=== PATIENT | male | born 1960 | race Caucasian/White ===

== ENCOUNTER 2019-02-26 10:26 | Day surgery (SDC) | payer OTHER ==
[2019-02-26] MEDS ORDERED: DIPRIVAN 200 MG/20 ML IV ONE (10:27)
[2019-02-26] MEDS ORDERED: Marcaine 0.5% SDV 10 ML IJ ONE (10:27)
[2019-02-26] MEDS ORDERED: XYLOCAINE 1% HCL 20 ML MDV IJ ONE (10:27)
[2019-02-26] MEDS ORDERED: Ketamine HCl 50 MG/ML IV ONE (10:27)
[2019-02-26] MEDS ORDERED: Depo-Medrol 40 MG/ML IM ONE (10:27)
[2019-02-26] MEDS ORDERED: Xylocaine 1% Vial 30 ML PF IJ ONE (10:27)
--- NOTE | 2019-02-26 12:24 | XRAY ---
5 seconds fluoroscopy time in surgery for right knee injection.
--- NOTE | 2019-02-26 12:24 | XRAY ---
7 seconds fluoroscopy time in surgery for left knee injection.
--- NOTE | 2019-02-26 12:25 | XRAY ---
Indication: Right knee injection. Intraoperative fluoroscopy was provided for 5 seconds. Single digital spot image submitted for interpretation demonstrates needle tip projecting over the right femur intercondylar notch. Small amount of contrast injected for needle tip placement. Correlate with intraoperative findings/report.
--- NOTE | 2019-02-26 12:34 | XRAY ---
Indication: Left knee injection. Intraoperative fluoroscopy was provided for 7 seconds. Single digital spot image submitted for interpretation demonstrates needle tip projecting over the left femur intercondylar notch. Small amount of contrast injected for needle tip placement. Correlate with intraoperative findings/report.
[2019-02-26] MEDS ORDERED: Lactated Ringers 1,000 ML IV ONE (13:48)
== END 2019-02-26 11:50 | disposition home or self-care (01) ==
LOC: SDC-PAIN 10:26
PROVIDERS: ATTEND Psychiatry & Neurology Pain Medicine
DX: M17.0 Bilateral primary osteoarthritis of knee (principal); I10 Essential (primary) hypertension; J44.9 Chronic obstructive pulmonary disease, unspecified; G62.9 Polyneuropathy, unspecified; B35.1 Tinea unguium; D64.9 Anemia, unspecified; F41.9 Anxiety disorder, unspecified; I25.10 Atherosclerotic heart disease of native coronary artery without angina pectoris; Z79.899 Other long term (current) drug therapy
CPT/HCPCS: 20610; 73560; 77002; J1030; J2001; J2704; Q9966

== ENCOUNTER 2019-03-14 05:51 | Day surgery (SDC) | payer OTHER ==
[2019-03-14] MEDS ORDERED: DIPRIVAN 200 MG/20 ML IV ONE (05:52)
[2019-03-14] MEDS ORDERED: Lactated Ringers 1,000 ML IV SCH (06:00)
[2019-03-14] MEDS ORDERED: Lactated Ringers 1,000 ML IV ONE (08:29)
[2019-03-14 08:59] VITALS: O2SAT 97
[2019-03-14 10:00] VITALS: BP 116/72; PULSE 72
--- NOTE | 2019-03-14 10:29 | OP ---
SURGERY DATE/TIME: 03/14/2019 0758 PREOPERATIVE DIAGNOSIS: Screening exam. POSTOPERATIVE DIAGNOSIS: Normal colon. PROCEDURE: Colonoscopy. SURGEON: Dr. Howell. ANESTHESIA: MAC. Medications given by anesthesia department. HISTORY: The patient is a 58 year-old white male patient presenting now for colonoscopic evaluation. He was appraised of the risks of the procedure including the risk of perforation, phlebitis, untoward reaction to medication, bleeding and missed lesions. The patient verbalized his understanding and desired to have the procedure performed. DESCRIPTION OF PROCEDURE: The patient was given the medications by the anesthesia department. He had continuous pulse oximetry, ECG monitoring, intermittent blood pressure monitoring and tidal CO2 monitoring during the examination. He was placed in the left lateral decubitus position. A digital rectal examination was performed and revealed normal anal sphincter tone, no masses and normal prostate. The flexible Olympus pediatric colonoscope was used to intubate the rectum. A view of the colon was developed sequentially to the cecum. Upon insertion and withdrawal, including a retroflex view in the rectum, no mucosal lesions were encountered. The scope was removed from the patient who tolerated the procedure well and was sent back to OP recovery in good condition. The prep was noted to be good. The colon was noted to be quite tortuous.
== END 2019-03-14 09:30 | disposition home or self-care (01) ==
LOC: SDC 05:51
PROVIDERS: ATTEND Family Medicine
DX: Z12.11 Encounter for screening for malignant neoplasm of colon (principal)
CPT/HCPCS: J2704

== ENCOUNTER 2019-08-13 11:25 | Emergency (ER) | payer OTHER ==
[2019-08-13] MEDS ORDERED: MORPHINE SULFATE 4 MG INJ IV ONE (11:28)
--- NOTE | 2019-08-13 11:38 | ERPHSYRPT ---
- History of Present Illness Time Seen by Provider: 08/13/19 11:25 Historian: patient Exam Limitations: no limitations Physician History: Patient referred to the emergency department from the pain clinic due to having worsening neck pain radiating to the left arm with pain in the posterior thoracic spine/left scapula area. Symptoms of the neck and arm have been going on for two weeks, worsening over the past two days. Timing/Duration: week(s) (2), worse (over the past two days) Activities at Onset: none Quality: aching Location: back, other (left arm and neck) Chest Pain Radiation: arm Severity of Pain-Max: moderate Severity of Pain-Current: mild Modifying Factors: Improves With: nothing Associated Symptoms: back pain (thoracic area), No nausea, No vomiting, No palpitations, No heartburn, No abdominal pain, No shortness of breath, No cough , No hurts to breathe, No diaphoresis, No chills, No fever, No fatigue, No weakness, No swelling/lump in chest, No syncope, No rash, No headache, No dizziness, No edema Prior Chest Pain/Cardiac Workup: stress test Nitro Today/Relief: no nitro taken today Aspirin Treatment Today: 325 mg x 1 Allergies/Adverse Reactions: No Known Drug Allergies Allergy (Verified 08/13/19 11:51) Home Medications: Acetaminophen [Tylenol Extra Strength] 2 tab PO Q6H PRN 03/07/19 [History] Atorvastatin Calcium 80 mg PO QHS 03/07/19 [History] Carbidopa/Levodopa [Rytary ER 36.25 mg-145 mg Cap] 1 each PO TID 03/07/19 [ History] Cetirizine HCl [Zyrtec] 10 mg PO DAILY 03/07/19 [History] Clopidogrel Bisulfate 75 mg [PLAVIX 75 MG Tablet] 1 tab PO DAILY 03/07/19 [History] Duloxetine HCl [Cymbalta] 60 mg PO BID 03/07/19 [History] Famotidine 20 mg [Pepcid 20 MG] 20 mg PO DAILY 03/07/19 [History] Folic Acid 1 mg [Folate 1 mg] 1 mg PO BID 03/07/19 [History] Hydroxyzine HCl 25 mg [Atarax 25 mg] 1 tab PO TID 03/07/19 [History] Methotrexate Sodium [Methotrexate] 8 tab PO WEEKLY 03/07/19 [History] Metoprolol Succinate 25 mg Xl* [Toprol-Xl 25MG Tablets] 12.5 mg PO BID [History] Pregabalin [Lyrica 100Mg] 100 mg PO TID 03/07/19 [History] Tramadol HCl 50 mg [Ultram 50 mg] 2 tab PO Q6H PRN 03/07/19 [History] Cyclobenzaprine HCl 5 mg PO BID PRN 08/13/19 [History] Leflunomide 10 mg PO DAILY 08/13/19 [History] Quetiapine Fumarate [Seroquel] 50 mg PO DAILY 08/13/19 [History] buPROPion HCl [Wellbutrin Sr] 100 mg PO DAILY 08/13/19 [History] - Review of Systems Constitutional: No Fever, No Chills, No Fatigue Eyes: No Eye Pain, No Vision Changes Ears, Nose, & Throat: No Mouth Pain, No Throat Swelling, No Hoarse, No Painful Swallowing Respiratory: No Cough, No Dyspnea Cardiac: No Chest Pain, No Edema, No Palpitations, No Syncope Abdominal/Gastrointestinal: No Abdominal Pain, No Nausea, No Vomiting Genitourinary Symptoms: No Dysuria, No Hematuria, No Flank Pain, No Other Musculoskeletal: Neck Pain, No Arthralgias, No Back Pain, No Joint Redness, No Joint Pain Skin: No Pruritis, No Rash Neurological: No Focal Weakness, No Paralysis, No Parasthesia, No Tremors Psychological: No Anxiety Hematologic/Lymphatic: No Easy Bleeding, No Easy Bruising All Other Systems: Reviewed and Negative - Past Medical History Pertinent Past Medical History: Yes Neurological History: No Pertinent History ENT History: No Pertinent History Cardiac History: Coronary Artery Disease, High Cholesterol, Hypertension, Other Respiratory History: COPD Endocrine Medical History: No Pertinent History Musculoskeletal History: Other GI Medical History: GERD History: No Pertinent History Psycho-Social History: Anxiety, Depression Male Reproductive Disorders: No Pertinent History Other Medical History: Hx of PAD and PVD. Femoral stents in both legs.Hx of smoking. Quit in 2104. Steroid injections in both knees 2-3 weeks ago. Hx of Parkinsons. Pt states " since surgery I catch things easily." - Past Surgical History Past Surgical History: Yes Neuro Surgical History: No Pertinent History Cardiac: CABG, Vascular Surgery, Other Respiratory: No Pertinent History Gastrointestinal: No Pertinent History Genitourinary: No Pertinent History Musculoskeletal: No Pertinent History Male Surgical History: No Pertinent History Other Surgical History: Hernia surgery 2015, CABG x 4 vessels in 2015, femoral stents in both legs. - Social History Smoking Status: Former smoker Exposure to second hand smoke: No Drug Use: none - Nursing Vital Signs Nursing Vital Signs: Initial Vital Signs Temperature 97.6 F 08/13/19 11:26 Pulse Rate 77 08/13/19 11:26 Respiratory Rate 14 08/13/19 11:26 Blood Pressure 126/77 08/13/19 11:26 O2 Sat by Pulse Oximetry 100 08/13/19 11:26 Pain Scale Pain Intensity 8 - Physical Exam General Appearance: no apparent distress Eye Exam: PERRL/EOMI, eyes nml inspection, No scleral icterus Ears, Nose, Throat Exam: pharynx normal, moist mucous membranes Neck Exam: normal inspection, non-tender, supple, full range of motion, No meningismus, No Brudzinski, No lymphadenopathy, No midline tenderness Respiratory Exam: normal breath sounds, lungs clear, airway intact, No chest tenderness, No respiratory distress, No accessory muscle use, No prolonged expirations, No crackles/rales, No rhonchi, No wheezing, No stridor, No pleural rub Cardiovascular Exam: regular rate/rhythm, normal heart sounds, normal peripheral pulses, capillary refill <2 sec Gastrointestinal/Abdomen Exam: soft, normal bowel sounds, No tenderness, No distention, No mass, No guarding, No ecchymosis, No pulsatile mass, No rebound, No hepatomegaly Back Exam: normal inspection, normal range of motion, No CVA tenderness, No vertebral tenderness, No rash Neurologic Exam: alert, oriented x 3, cooperative, radiology administrator II-XII nml as tested, normal mood/affect, nml station & gait, sensation nml, No motor deficits, No motor weakness Skin Exam: normal color, warm, dry, No rash, No petechiae, No cyanosis SpO2 Interpretation: normal O2 Delivery: Room Air - Course Nursing assessment & vital signs reviewed: Yes EKG Interpreted by Me: RATE (80), Sinus Rhythm, NORMAL AXIS, NORMAL INTERVALS, Right Bundle Branch Block, NORMAL ST-T, Other (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; negative previous EKG for comparison) - Radiology Exams Chest X-ray Interpretation: Interpreted by me, Reviewed by me, Negative, No Fracture, No Pneumonia, No Pneumothorax, Nml Heart Size, No Infiltrates, Nml Mediastinum, Other (hyperinflation and patient has sternotomy wires/CABG surgery; mild degenerative changes in the bony thorax; confirmed by Radiologist) C-Spine X-ray Interpretation: Reviewed by me, Other (per radiologist interpretation: 3 views of the cervical spine demonstrates 2 mm C4 retrolisthesis on C5, moderate C6 and C7 degenerative disc space loss with endplate spurring, mild/moderate degenerative facet hypertrophy left greater than right, left carotid calcification, and sternotomy wires. No other bony, articular or soft tissue abnormalities. Overall impression: Nonacute cervical spine with chronic features.) Ordered Tests: Active Orders 24 hr Category Date Time Status Skull Grinder STAT Care 08/13/19 11:28 Active EKG-ER Only STAT Care 08/13/19 11:28 Active IV Insertion STAT Care 08/13/19 11:28 Active Pulse Oximetry (ED) STAT Care 08/13/19 11:28 Active CERVICAL SPINE (2 OR 3 VIEW) Stat Exams 08/13/19 12:14 Completed CHEST 1 VIEW (PORTABLE) Stat Exams 08/13/19 11:42 Completed CBC W DIFF Stat Lab 08/13/19 11:38 Completed CK-Creatinine Phosphokinase Stat Lab 08/13/19 11:38 Completed CMP Stat Lab 08/13/19 11:38 Completed MAGNESIUM Stat Lab 08/13/19 11:38 Completed NT PRO BNP Stat Lab 08/13/19 11:38 Completed PROTIME WITH INR Stat Lab 08/13/19 11:38 Completed PTT Stat Lab 08/13/19 11:38 Completed TROPONIN Q3H Lab 08/13/19 11:38 Completed TROPONIN Q3H Lab 08/13/19 14:30 Completed TROPONIN Q3H Lab 08/13/19 17:30 Ordered TROPONIN Q3H Lab 08/13/19 20:30 Ordered TROPONIN Q3H Lab 08/13/19 23:30 Ordered Urine Triage Profile Stat Lab 08/13/19 11:57 Completed Medication Summary Discontinued Medications Generic Name Dose Route Start Last Admin Trade Name Freq PRN Reason Stop Dose Admin Morphine Sulfate 4 mg 08/13/19 11:28 08/13/19 11:51 Morphine Sulfate 4 Mg Inj IV 08/13/19 11:29 4 mg STAT ONE Administration Morphine Sulfate Confirm 08/13/19 11:50 Morphine Sulfate 4 Mg Inj Administered 08/13/19 11:51 Dose 4 mg .ROUTE .STK-MED ONE Lab/Rad Data: Laboratory Result Diagrams 08/13/19 11:38 08/13/19 11:38 Laboratory Results 08/13/19 08/13/19 08/13/19 Range/Units 14:30 11:57 11:38 WBC (4.0-10.5) K/mm3 RBC (4.1-5.6) M/mm3 Hgb (12.5-18.0) gm/dl Hct (42-50) % MCV (78-100) fl MCH (26-32) pg MCHC (32-36) g/dl RDW (11.5-14.0) % Plt Count (150-450) K/mm3 MPV (6-9.5) fl Gran % (36.0-66.0) % Eos # (Auto) (0-0.5) Absolute Lymphs (auto) (1.0-4.6) Absolute Monos (auto) (0.0-1.3) Lymphocytes % (24.0-44.0) % Monocytes % (0.0-12.0) % Eosinophils % (0.00-5.0) % Basophils % (0.0-0.4) % Absolute Granulocytes (1.4-6.9) Basophils # (0-0.4) PT (8.83-12.87) SECONDS INR (0.8-3.0) APTT (24.1-36.1) SECONDS Sodium (137-145) mmol/L Potassium (3.5-5.1) mmol/L Chloride (98-107) mmol/L Carbon Dioxide (22-30) mmol/L Anion Gap (5-15) MEQ/L BUN (9-20) mg/dL Creatinine (0.66-1.25) mg/dL Estimated GFR ML/MIN Glucose (74-106) mg/dL Calcium (8.4-10.2) mg/dL Magnesium (1.6-2.3) mg/dL Total Bilirubin (0.2-1.3) mg/dL AST (17-59) U/L ALT (0-50) U/L Alkaline Phosphatase (38-126) U/L Creatine Kinase (55-170) U/L Troponin I < 0.012 < 0.012 (0.000-0.034) ng/mL NT-Pro-B Natriuret Pep (0-900) pg/mL Serum Total Protein (6.3-8.2) g/dL Albumin (3.5-5.0) g/dL Urine Opiates Level NEGATIVE (NEGATIVE) Ur Methadone NEGATIVE (NEGATIVE) Urine Barbiturates NEGATIVE (NEGATIVE) Ur Phencyclidine (PCP) NEGATIVE (NEGATIVE) Urine Amphetamine NEGATIVE (NEGATIVE) U Benzodiazepine Level NEGATIVE (NEGATIVE) Urine Cocaine NEGATIVE (NEGATIVE) Urine Marijuana (THC) NEGATIVE (NEGATIVE) 08/13/19 08/13/19 08/13/19 Range/Units 11:38 11:38 11:38 WBC 7.7 (4.0-10.5) K/mm3 RBC 3.85 L (4.1-5.6) M/mm3 Hgb 12.3 L (12.5-18.0) gm/dl Hct 38.8 L (42-50) % MCV 100.8 H (78-100) fl MCH 31.9 (26-32) pg MCHC 31.7 L (32-36) g/dl RDW 14.5 H (11.5-14.0) % Plt Count 220 (150-450) K/mm3 MPV 9.4 (6-9.5) fl Gran % 57.2 (36.0-66.0) % Eos # (Auto) 0.89 H (0-0.5) Absolute Lymphs (auto) 1.44 (1.0-4.6) Absolute Monos (auto) 0.93 (0.0-1.3) Lymphocytes % 18.7 L (24.0-44.0) % Monocytes % 12.1 H (0.0-12.0) % Eosinophils % 11.5 H (0.00-5.0) % Basophils % 0.5 (0.0-0.4) % Absolute Granulocytes 4.41 (1.4-6.9) Basophils # 0.04 (0-0.4) PT 11.5 (8.83-12.87) SECONDS INR 1.02 (0.8-3.0) APTT 31.7 (24.1-36.1) SECONDS Sodium 143 (137-145) mmol/L Potassium 4.4 (3.5-5.1) mmol/L Chloride 105 (98-107) mmol/L Carbon Dioxide 29 (22-30) mmol/L Anion Gap 13.7 (5-15) MEQ/L BUN 15 (9-20) mg/dL Creatinine 0.84 (0.66-1.25) mg/dL Estimated GFR > 60.0 ML/MIN Glucose 83 (74-106) mg/dL Calcium 9.4 (8.4-10.2) mg/dL Magnesium 2.2 (1.6-2.3) mg/dL Total Bilirubin 0.40 (0.2-1.3) mg/dL AST 17 (17-59) U/L ALT < 4 (0-50) U/L Alkaline Phosphatase 59 (38-126) U/L Creatine Kinase 61 (55-170) U/L Troponin I (0.000-0.034) ng/mL NT-Pro-B Natriuret Pep 123 (0-900) pg/mL Serum Total Protein 8.1 (6.3-8.2) g/dL Albumin 4.2 (3.5-5.0) g/dL Urine Opiates Level (NEGATIVE) Ur Methadone (NEGATIVE) Urine Barbiturates (NEGATIVE) Ur Phencyclidine (PCP) (NEGATIVE) Urine Amphetamine (NEGATIVE) U Benzodiazepine Level (NEGATIVE) Urine Cocaine (NEGATIVE) Urine Marijuana (THC) (NEGATIVE) - Progress Progress: re-examined Air Movement: good Progress Note: 08/13/19 11:51 Cardiac Nuclear Study performed on 12/30/2018: No evidence of pharmacologic reversible ischemia; Normal EF: 58% 08/13/19 12:36 HEART score: 3, low risk, up to 1.7 % risk for MACE in next 6 weeks Patient is chest pain free currently with no complaints of nausea, abdominal pain or dyspnea. Patient has been in sinus rhythm throughout his time in the emergency department with no ectopy or arrythmias on the front desk monitor. Patient would like to get a second troponin due to his past coronary history. 08/13/19 16:25 Patient doing well with no chest pain, dyspnea or back pain. Repeat troponin was negative, keeping his HEART score at 3, low risk and can be followed up as an outpatient. Blood Culture(s) Obtained: No Antibiotics given: No Counseled pt/family regarding: lab results, diagnosis, need for follow-up, rad results - Departure Departure Disposition: Home Clinical Impression: Neck pain on left side, Cervical radiculopathy at C6, Degenerative disc disease , cervical, Facet arthropathy, cervical, Macrocytic anemia Condition: Good Critical Care Time: No Referrals: MUSTAPHA RIOS [Primary Care Provider] - 08/14/19 Instructions: Spinal Stenosis, Vitamin B12 Deficiency and Folic Acid Deficiency , Chest Pain (DC), Radiculopathy (DC), Chronic Neck Pain (DC) Additional Instructions: Return immediately back to the Emergency Department if any worsening pain, new chest pain, new shortness of breath, new weakness in the arms, new loss of sensation, new abdominal pain, new nausea, new skin rash, or any other concerning signs or symptoms that were not present at today's emergency department visit for immediate reevaluation in the emergency department. Prescriptions: Methylprednisolone Packet [Medrol Dosepack] 4 mg PO UD #1 packet
[2019-08-13 11:41] LABS: Absolute Neutrophil Ct (ANC) 4.41 (1.4-6.9); BASOPHIL % 0.5 % (0.0-0.4); Basophil (Absolute #) 0.04 (0-0.4); Eosinophil % 11.5 % (0.00-5.0); Eosinophil (Absolute #) 0.89 (0-0.5); Hematocrit 38.8 % (42-50); Hemoglobin 12.3 gm/dl (12.5-18.0); Lymphocyte (Absolute #) 1.44 (1.0-4.6); Lymphocytes % 18.7 % (24.0-44.0); Mean Cell Volume 100.8 fl (78-100); Mean Corpuscular Hemoglobin 31.9 pg (26-32); Mean Corpuscular Hgb Concent. 31.7 g/dl (32-36); Mean Platelet Volume 9.4 fl (6-9.5); Monocyte (Absolute #) 0.93 (0.0-1.3); Monocytes % 12.1 % (0.0-12.0); Neutrophil % 57.2 % (36.0-66.0); Platelet Count 220 K/mm3 (150-450); Red Blood Count 3.85 M/mm3 (4.1-5.6); Red Cell Distribution Width 14.5 % (11.5-14.0); White Blood Count 7.7 K/mm3 (4.0-10.5)
[2019-08-13] MEDS ORDERED: MORPHINE SULFATE 4 MG INJ ONE (11:50)
[2019-08-13 11:51] LABS: INR 1.02 (0.8-3.0); PROTIME 11.5 SECONDS (8.83-12.87)
[2019-08-13 11:54] LABS: PTT 31.7 SECONDS (24.1-36.1)
[2019-08-13 12:04] LABS: ALBUMIN 4.2 g/dL (3.5-5.0); ALKALINE PHOSPHATASE 59 U/L (38-126); ANION GAP 13.7 MEQ/L (5-15); BLOOD UREA NITROGEN 15 mg/dL (9-20); CHLORIDE 105 mmol/L (98-107); CK-Creatinine Phosphokinase 61 U/L (55-170); Calcium 9.4 mg/dL (8.4-10.2); Carbon Dioxide 29 mmol/L (22-30); Creatinine 1 0.84 mg/dL (0.66-1.25); Glucose 83 mg/dL (74-106); MAGNESIUM 2.2 mg/dL (1.6-2.3); NT PRO BNP 123 pg/mL (0-900); Potassium 4.4 mmol/L (3.5-5.1); SGOT/AST 17 U/L (17-59); SODIUM 143 mmol/L (137-145); Total Protein 8.1 g/dL (6.3-8.2)
[2019-08-13 12:09] LABS: SGPT/ALT < 4 U/L (0-50)
[2019-08-13 12:20] LABS: Amphetamine,Urine NEGATIVE (NEGATIVE); Barbiturate,Urine NEGATIVE (NEGATIVE); Benzodiazepine,Urine NEGATIVE (NEGATIVE); Cocaine,Urine NEGATIVE (NEGATIVE); Methadone,Urine NEGATIVE (NEGATIVE); Opiate,Urine NEGATIVE (NEGATIVE); PCP,Urine NEGATIVE (NEGATIVE); THC,Urine NEGATIVE (NEGATIVE)
--- NOTE | 2019-08-13 13:15 | XRAY ---
Indication: Left arm pain. Comparison: May 20, 2019. Portable chest remains hyperinflated and clear. Heart is not enlarged again with CABG surgery. Bony thorax intact again with mild degenerative changes. Impression: Stable nonacute chest with chronic features.
--- NOTE | 2019-08-13 13:16 | XRAY ---
Indication: Left arm pain. Comparison: None 3 views of the cervical spine demonstrates 2 mm C4 anterolisthesis on C5, moderate C6-C7 degenerative disc space loss with endplate spurring, mild/moderate degenerative facet hypertrophy left greater than right, left carotid calcifications, and sternotomy wires. No other bony, articular, or soft tissue abnormalities. Impression: Nonacute cervical spine with chronic features.
[2019-08-13 16:29] VITALS: BP 96/66; PULSE 64; O2SAT 99
== END 2019-08-13 16:38 | disposition home or self-care (01) ==
LOC: ED 11:25
DX: M54.2 Cervicalgia (principal); M54.12 Radiculopathy, cervical region; M50.30 Other cervical disc degeneration, unspecified cervical region; M12.9 Arthropathy, unspecified
CPT/HCPCS: 36000; 36415; 71045; 72040; 80053; 80307; 82550; 83735; 83880; 84484; 85025; 85610; 85730; 93005; 93041; 94760; 96374; 99284; J2270

== ENCOUNTER 2021-03-18 16:33 | Emergency (ER) | payer OTHER ==
[2021-03-18 17:34] LABS: Hematocrit 33.7 % (42-50); Mean Cell Volume 98.3 fl (78-100); Mean Corpuscular Hemoglobin 29.2 pg (26-32); Mean Corpuscular Hgb Concent. 29.7 g/dl (32-36); Mean Platelet Volume 9.7 fl (7.5-11.0); Platelet Count 175 K/mm3 (150-450); Red Blood Count 3.43 M/mm3 (4.1-5.6); Red Cell Distribution Width 17.7 % (11.5-14.0); White Blood Count 6.8 K/mm3 (4.0-10.5)
[2021-03-18 17:44] LABS: ALBUMIN 3.7 g/dL (3.5-5.0); ALKALINE PHOSPHATASE 53 U/L (38-126); ANION GAP 9.5 MEQ/L (5-15); BLOOD UREA NITROGEN 20 mg/dL (9-20); CHLORIDE 105 mmol/L (98-107); Calcium 8.4 mg/dL (8.4-10.2); Carbon Dioxide 29 mmol/L (22-30); Creatinine 1 0.96 mg/dL (0.66-1.25); EST GLOMERULAR FILTRATION RATE > 60.0 ML/MIN; Glucose 90 mg/dL (74-106); SGOT/AST 19 U/L (17-59); SODIUM 140 mmol/L (137-145); Total Protein 6.5 g/dL (6.3-8.2)
[2021-03-18 17:46] LABS: Appearance CLEAR (CLEAR); Bilirubin NEGATIVE (NEGATIVE); Blood NEGATIVE Ery/ul (0-5); Glucose NEGATIVE (NEGATIVE); Hyaline Casts 0-2 /LPF (0-2); Ketones TRACE (NEGATIVE); Leukocyte Esterase NEGATIVE (NEGATIVE); Nitrite NEGATIVE (NEGATIVE); Protein,Urine Dip NEGATIVE (Negative); Specific Gravity 1.024 (1.005-1.025); Urobilinogen NEGATIVE mg/dL (0-1); WBC 0-2 /HPF (0-5)
[2021-03-18 17:46] LABS: SGPT/ALT 4 U/L (0-50)
[2021-03-18 17:50] LABS: RBC NONE SEEN /HPF (0-2)
[2021-03-18 17:51] LABS: Bacteria NONE SEEN /HPF (NEGATIVE)
[2021-03-18 18:28] LABS: Eosinophil 9 % (0.00-3.0); Lymphocytes 27 % (24-44); Monocyte 18 % (0.0-12.0); Neutrophils 46 % (36.-66.); Platelet Estimate NORMAL (NORMAL); Total Cells Counted 100
--- NOTE | 2021-03-18 18:45 | ERPHSYRPT ---
- History of Present Illness Source: patient, other (SO) Patient Subjective Stated Complaint: tripped on stepping stone last week and landed on right side . co confusion all week, no loc , was sent here for drs office, Triage Nursing Assessment: pt alert, resp easy ,walked in, face mask in place, skin w/d/p. has swelling to left leg, pt answers all question for nurse Physician History: 60 yo wm w h/o Parkinson's ds presents to ER w [facility] after falling and hitting his head 1wk ago. Pt sent from PCP's office. He denies focal weakness/fever/HILL/chest pain/N/V/D/melena/hematochezia. Timing/Duration: other (1wk) Severity: mild Character of Deficits: other (Confusion) Deficits: no difficulties Baseline/Normal Cognition: alert oriented x 3 Current Cognition: alert oriented x 3 Baseline Gait: walks w/o assistance Associated Symptoms: confusion, No fatigue, No fever, No chills, No loss of consciousness, No nausea, No vomiting, No weakness, No insomnia, No muscle spasm s, No numbness/tingling in legs/feet, No paresthesia, No ringing in ears, No seizures, No slurred speech, No trouble walking, No vision changes, No chest pain, No headache Allergies/Adverse Reactions: No Known Drug Allergies Allergy (Verified 03/18/21 16:54) Home Medications: Acetaminophen [Tylenol Extra Strength] 2 tab PO Q6H PRN 03/07/19 [History] Atorvastatin Calcium 80 mg PO QHS 03/07/19 [History] Carbidopa/Levodopa [Rytary ER 36.25 mg-145 mg Cap] 1 each PO TID 03/07/19 [History] Cetirizine HCl [Zyrtec] 10 mg PO DAILY 03/07/19 [History] Clopidogrel Bisulfate 75 mg [PLAVIX 75 MG Tablet] 1 tab PO DAILY 03/07/19 [History] Duloxetine HCl [Cymbalta] 60 mg PO BID 03/07/19 [History] Famotidine 20 mg [Pepcid 20 MG] 20 mg PO DAILY 03/07/19 [History] Folic Acid 1 mg [Folate 1 mg] 1 mg PO BID 03/07/19 [History] Hydroxyzine HCl 25 mg [Atarax 25 mg] 1 tab PO TID 03/07/19 [History] Methotrexate Sodium [Methotrexate] 8 tab PO WEEKLY 03/07/19 [History] Metoprolol Succinate 25 mg Xl* [Toprol-Xl 25MG Tablets] 12.5 mg PO BID 03/07/19 [History] Pregabalin [Lyrica 100Mg] 100 mg PO TID 03/07/19 [History] Tramadol HCl 50 mg [Ultram 50 mg] 2 tab PO Q6H PRN 03/07/19 [History] Cyclobenzaprine HCl 5 mg PO BID PRN 08/13/19 [History] Leflunomide 10 mg PO DAILY 08/13/19 [History] Quetiapine Fumarate [Seroquel] 50 mg PO DAILY 08/13/19 [History] buPROPion HCl [Wellbutrin Sr] 100 mg PO DAILY 08/13/19 [History] Hx Influenza Vaccination/Date Given: Yes Hx Pneumococcal Vaccination/Date Given: Yes Immunizations Up to Date: Yes Travel Risk - International Travel Have you traveled outside of the country in past 3 weeks: No - Coronavirus Screening Are you exhibiting any of the following symptoms?: No - Vaccine Status Have you recieved a Covid-19 vaccination: Yes [employer]: Moderna - Vaccination Dates Date of 2cond Vaccination (if applicable): february - Review of Systems Constitutional: No Symptoms Eyes: No Symptoms Ears, Nose, & Throat: No Symptoms Respiratory: No Symptoms Cardiac: No Symptoms Abdominal/Gastrointestinal: No Symptoms Genitourinary Symptoms: No Symptoms Musculoskeletal: No Symptoms Skin: No Symptoms Neurological: Other (Confusion) Psychological: No Alcohol Abuse, No Drug Abuse, No Anxiety, No Depression, No Suicidal Ideations, No Homicidal Ideations, No Emotional Lability, No Hallucinations, No Memory Loss, No Mood Changes Endocrine: No Symptoms Hematologic/Lymphatic: No Symptoms Immunological/Allergic: No Symptoms - Past Medical History Pertinent Past Medical History: Yes Neurological History: Other ENT History: No Pertinent History Cardiac History: Coronary Artery Disease, High Cholesterol, Hypertension, Other Respiratory History: COPD Endocrine Medical History: No Pertinent History Musculoskeletal History: Arthritis, Other GI Medical History: GERD History: No Pertinent History Psycho-Social History: Anxiety, Depression Male Reproductive Disorders: No Pertinent History Other Medical History: Hx of PAD and PVD. Femoral stents in both legs.Hx of smoking. Quit in 2104. Steroid injections in both knees 2-3 weeks ago. Hx of Parkinsons. Pt states " since surgery I catch things easily." - Past Surgical History Past Surgical History: Yes Neuro Surgical History: No Pertinent History Cardiac: CABG, Vascular Surgery, Other Respiratory: No Pertinent History Gastrointestinal: No Pertinent History Genitourinary: No Pertinent History Musculoskeletal: No Pertinent History Male Surgical History: No Pertinent History Other Surgical History: Hernia surgery 2014, CABG x 4 vessels in 2014, femoral stents in both legs. - Social History Smoking Status: Former smoker Exposure to second hand smoke: No Drug Use: none Patient Lives Alone: No Significant Family History: no pertinent family hx - Nursing Vital Signs Nursing Vital Signs: Initial Vital Signs Pulse Rate 76 03/18/21 17:36 Respiratory Rate 18 03/18/21 17:36 Blood Pressure 148/84 03/18/21 17:36 O2 Sat by Pulse Oximetry 98 03/18/21 17:36 Pain Scale Pain Intensity 0 - Norberto Coma Scale Best Eye Response ([place]): (4) open spontaneously Best Verbal Response ([place]): (5) oriented Best Motor Response ([place]): (6) obeys commands Norberto Total: 15 - Physical Exam General Appearance: no apparent distress Eye Exam: bilateral eye: normal inspection, PERRL, EOMI Ears, Nose, Throat Exam: normal ENT inspection, TMs normal, pharynx normal, mo ist mucous membranes Neck Exam: normal inspection, non-tender, supple, full range of motion, No meningismus, No mass, No Brudzinski, No Kernig's, No carotid bruit Respiratory: normal breath sounds, lungs clear, airway intact, No respiratory distress Cardiovascular: regular rate/rhythm, normal heart sounds, normal peripheral pulses, No murmur Gastrointestinal: soft, normal bowel sounds, No tenderness Back Exam: normal inspection, normal range of motion, No CVA tenderness, No vertebral tenderness, No rash Extremity Exam: normal inspection, normal range of motion Peripheral Pulses: carotid (R): 2+, carotid (L): 2+ Mental Status: alert, oriented x 3, 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 Exam: normal hearing, normal speech, PERRL, abnormal eye position, No abnormal gag reflex Coordination/Gait: normal finger to nose, normal gait, normal cerebellar function Motor/Sensory: no motor deficit, no sensory deficit, no pronator drift, negative Babinski's sign DTR: bicep (R): 2+, bicep (L): 2+ Skin Exam: normal color, warm, dry SpO2 Interpretation: normal SpO2: 100 O2 Delivery: Room Air - Course Nursing assessment & vital signs reviewed: Yes - CT Exams Head CT Interpretation: Tele-radiologist Report (NAD) Ordered Tests: Active Orders 24 hr Category Date Time Status NPO (ED) STAT Care 03/18/21 17:10 Completed CHEST 1 VIEW (PORTABLE) Stat Exams 03/18/21 17:10 Taken HEAD WITHOUT CONTRAST [CT] Stat Exams 03/18/21 17:10 Taken CBC W DIFF Stat Lab 03/18/21 17:20 Completed CMP Stat Lab 03/18/21 17:20 Completed Manual Differential NC Stat Lab 03/18/21 17:20 Completed TROPONIN Q3H Lab 03/18/21 16:40 Completed UA W/RFX UR CULTURE Stat Lab 03/18/21 17:46 Completed Lab/Rad Data: Laboratory Result Diagrams 03/18/21 17:20 03/18/21 17:20 Laboratory Results 03/18/21 03/18/21 03/18/21 Range/Units 17:46 17:20 17:20 WBC 6.8 (4.0-10.5) K/mm3 RBC 3.43 L (4.1-5.6) M/mm3 Hgb 10.0 L (12.5-18.0) gm/dl Hct 33.7 L (42-50) % MCV 98.3 (78-100) fl MCH 29.2 (26-32) pg MCHC 29.7 L (32-36) g/dl RDW 17.7 H (11.5-14.0) % Plt Count 175 (150-450) K/mm3 MPV 9.7 (7.5-11.0) fl Segmented Neutrophils 46 (36.-66.) % Lymphocytes (Manual) 27 (24-44) % Monocytes (Manual) 18 H (0.0-12.0) % Eosinophils (Manual) 9 H (0.00-3.0) % Platelet Estimate NORMAL (NORMAL) RBC Morphology NORMAL Sodium 140 (137-145) mmol/L Potassium 4.0 (3.5-5.1) mmol/L Chloride 105 (98-107) mmol/L Carbon Dioxide 29 (22-30) mmol/L Anion Gap 9.5 (5-15) MEQ/L BUN 20 (9-20) mg/dL Creatinine 0.96 (0.66-1.25) mg/dL Estimated GFR > 60.0 ML/MIN Glucose 90 (74-106) mg/dL Calcium 8.4 (8.4-10.2) mg/dL Total Bilirubin 0.30 (0.2-1.3) mg/dL AST 19 (17-59) U/L ALT 4 (0-50) U/L Alkaline Phosphatase 53 (38-126) U/L Troponin I (0.000-0.034) ng/mL Serum Total Protein 6.5 (6.3-8.2) g/dL Albumin 3.7 (3.5-5.0) g/dL Urine Color YELLOW (YELLOW) Urine Appearance CLEAR (CLEAR) Urine pH 5.0 (5-6) Ur Specific Gerber 1.024 (1.005-1.025) Urine Protein NEGATIVE (Negative) Urine Ketones TRACE (NEGATIVE) Urine Blood NEGATIVE (0-5) Ronak/ul Urine Nitrite NEGATIVE (NEGATIVE) Urine Bilirubin NEGATIVE (NEGATIVE) Urine Urobilinogen NEGATIVE (0-1) mg/dL Ur Leukocyte Esterase NEGATIVE (NEGATIVE) Urine WBC (Auto) 0-2 (0-5) /HPF Urine RBC (Auto) NONE SEEN (0-2) /HPF U Hyaline Cast (Auto) 0-2 (0-2) /LPF U Epithel Cells (Auto) NONE (FEW) /HPF Urine Bacteria (Auto) NONE SEEN (NEGATIVE) /HPF Urine Culture Reflexed NO (NO) Urine Glucose NEGATIVE (NEGATIVE) mg/dL 03/18/21 Range/Units 16:40 WBC (4.0-10.5) K/mm3 RBC (4.1-5.6) M/mm3 Hgb (12.5-18.0) gm/dl Hct (42-50) % MCV (78-100) fl MCH (26-32) pg MCHC (32-36) g/dl RDW (11.5-14.0) % Plt Count (150-450) K/mm3 MPV (7.5-11.0) fl Segmented Neutrophils (36.-66.) % Lymphocytes (Manual) (24-44) % Monocytes (Manual) (0.0-12.0) % Eosinophils (Manual) (0.00-3.0) % Platelet Estimate (NORMAL) RBC Morphology Sodium (137-145) mmol/L Potassium (3.5-5.1) mmol/L Chloride (98-107) mmol/L Carbon Dioxide (22-30) mmol/L Anion Gap (5-15) MEQ/L BUN (9-20) mg/dL Creatinine (0.66-1.25) mg/dL Estimated GFR ML/MIN Glucose (74-106) mg/dL Calcium (8.4-10.2) mg/dL Total Bilirubin (0.2-1.3) mg/dL AST (17-59) U/L ALT (0-50) U/L Alkaline Phosphatase (38-126) U/L Troponin I < 0.012 (0.000-0.034) ng/mL Serum Total Protein (6.3-8.2) g/dL Albumin (3.5-5.0) g/dL Urine Color (YELLOW) Urine Appearance (CLEAR) Urine pH (5-6) Ur Specific Gerber (1.005-1.025) Urine Protein (Negative) Urine Ketones (NEGATIVE) Urine Blood (0-5) Ronak/ul Urine Nitrite (NEGATIVE) Urine Bilirubin (NEGATIVE) Urine Urobilinogen (0-1) mg/dL Ur Leukocyte Esterase (NEGATIVE) Urine WBC (Auto) (0-5) /HPF Urine RBC (Auto) (0-2) /HPF U Hyaline Cast (Auto) (0-2) /LPF U Epithel Cells (Auto) (FEW) /HPF Urine Bacteria (Auto) (NEGATIVE) /HPF Urine Culture Reflexed (NO) Urine Glucose (NEGATIVE) mg/dL - Progress Progress Note: 03/18/21 19:28 Pt wo focal weakness during stay and has been alert/oriented x3. Counseled pt/family regarding: lab results, diagnosis, need for follow-up, rad results - Departure Departure Disposition: Home Clinical Impression: Confusion, Parkinson disease Condition: Stable Critical Care Time: No Referrals: MUSTAPHA RAYO [Primary Care Provider] - Instructions: Altered Mental Status (DC) Additional Instructions: Follow up with Dr. Rayo or Dr. De Leon early next week Return to ER for focal weakness/temperature greater than 100.5/any new mental status changes
[2021-03-18 19:08] VITALS: BP 113/67; PULSE 72
[2021-03-18 19:30] VITALS: O2SAT 100
--- NOTE | 2021-03-18 21:35 | XRAY ---
Indication: Acute mental status change. Right eye visual disturbance. Headache. Comparison: August 13, 2019. Portable apical lordotic chest remains hyperinflated and clear. Heart not enlarged with again CABG surgery. Bony thorax intact again with mild degenerative changes. Impression: Continued nonacute chest with chronic features.
--- NOTE | 2021-03-18 21:40 | XRAY ---
Indication: Acute mental status change. Visual disturbance right eye. Headache. Multiple contiguous axial images obtained through the head without contrast. Comparison: None Age-appropriate global atrophy and minimal periventricular degenerative micro-ischemia bilaterally. No acute intracranial hemorrhage, abnormal extra-axial fluid collection, or mass effect. Fourth ventricle is midline without hydrocephalus. Bony calvarium intact. Minimal mucosal thickening left maxillary sinus. Remaining visualized paranasal sinuses and mastoid air cells are clear. Impression: Nonacute senile brain. Comment: Preliminary interpretation was made by [facility]. No critical discrepancy.
== END 2021-03-18 19:39 | disposition home or self-care (01) ==
LOC: ED 16:33
DX: R41.0 Disorientation, unspecified (principal); G20 Parkinson's disease; W18.09XA Striking against other object with subsequent fall, initial encounter; Y93.89 Activity, other specified; Y92.89 Other specified places as the place of occurrence of the external cause; Z79.899 Other long term (current) drug therapy; I10 Essential (primary) hypertension; J44.9 Chronic obstructive pulmonary disease, unspecified; I25.10 Atherosclerotic heart disease of native coronary artery without angina pectoris; E78.00 Pure hypercholesterolemia, unspecified
CPT/HCPCS: 36000; 36415; 70450; 71045; 80053; 81001; 84484; 85025; 99284